=== PATIENT | female | born 1980 | race Native Hawaiian/Other Pacific Islander ===

== ENCOUNTER 2018-08-24 12:30 | Observation (INO) | payer BC ==
[~2018-08-24] VITALS: Ht 160 cm; Wt 79.6 kg
[2018-08-24] VITALS (10 sets, daily range): BP systolic 96–144; BP diastolic 65–93; TEMP 98.1–98.3; Ht 160 cm; Wt 79.6 kg
[2018-08-24] MEDS ORDERED: LORA0.5T17 PO (12:47)
[2018-08-24 13:20] LABS: PLATELET COUNT 276 K/uL (152-353)
[2018-08-25 04:00] VITALS: BP 92/57; TEMP 98
[2018-08-25 06:16] LABS: PLATELET COUNT 236 K/uL (152-353)
[2018-08-25 08:00] VITALS: BP 121/60; TEMP 97.96
== END 2018-08-25 12:10 | disposition home or self-care (01) ==
LOC: ED 12:30 → MED/SURG 15:00 → ED 15:30 → MED/SURG 08-25 12:10
PROVIDERS: Student in an Organized Health Care Education/Training Program; ADMIT Emergency Medicine
PROC: 0DTJ4ZZ Resection of Appendix, Percutaneous Endoscopic Approach (ICD-10-PCS; principal; 2018-08-24)
DX: K35.890 Other acute appendicitis without perforation or gangrene (principal)
CPT/HCPCS: 36415; 80053; 81000; 81025; 82150; 83690; 85027; 96361; 96365; 96375; 99220; 99284; G0378; J0132; J0330; J0360; J1100; J1170; J1644; J1885; J2001; J2250; J2405; J2543; J2704; J3010; J3490

== ENCOUNTER 2018-12-19 08:20 | Emergency (ER) | payer BC ==
[~2018-12-19] VITALS: Ht 160 cm; Wt 68.0 kg
[~2018-12-19 08:20] MED LIST: LORA0.5T17 PO
[2018-12-19 08:55] LABS: PLATELET COUNT 281 K/uL (152-353)
[2018-12-19 09:07] LABS: POTASSIUM 3.9 mmol/L (3.6-5.2)
[2018-12-19 11:01] VITALS: BP 133/84; TEMP 98
== END 2018-12-19 11:12 | disposition home or self-care (01) ==
LOC: ED 08:20
PROVIDERS: Family Medicine
DX: R10.11 Right upper quadrant pain (principal)
CPT/HCPCS: 36415; 80053; 81000; 82150; 83690; 85027; 96374; 99284; J1885

== ENCOUNTER 2018-12-22 07:50 | Outpatient (CLI) | payer BC ==
[~2018-12-22] VITALS: Ht 30.5 cm; Wt 0.5 kg
== END 2018-12-22 23:15 | disposition home or self-care (01) ==
LOC: NM 07:50
DX: R10.11 Right upper quadrant pain (principal)
CPT/HCPCS: A9537; J2270

== ENCOUNTER 2018-12-26 08:11 | Day surgery (SDC) | payer BC ==
[~2018-12-26] VITALS: Ht 30.5 cm; Wt 0.5 kg
== END 2018-12-26 14:47 | disposition home or self-care (01) ==
LOC: OR 08:11
PROC: 0FT44ZZ Resection of Gallbladder, Percutaneous Endoscopic Approach (ICD-10-PCS; principal; 2018-12-26)
DX: K81.1 Chronic cholecystitis (principal)
CPT/HCPCS: 81025; J0132; J0330; J0690; J1100; J1170; J1885; J2001; J2250; J2405; J2704; J2765; J3010; J3490

== ENCOUNTER 2019-08-07 13:55 | Outpatient (CLI) | payer BC | END 2019-08-07 20:15 | disposition home or self-care (01) | LOC: RAD 13:55 | DX: M79.671 Pain in right foot (principal) ==

== ENCOUNTER 2019-08-14 12:42 | Emergency (ER) | payer BC ==
[~2019-08-14] VITALS: Ht 160 cm; Wt 65.8 kg
[2019-08-14 12:50] VITALS: BP 128/103; TEMP 98.1
== END 2019-08-14 14:21 | disposition home or self-care (01) ==
LOC: ED 12:42
DX: S09.90XA Unspecified injury of head, initial encounter (principal); J01.90 Acute sinusitis, unspecified; W51.XXXA Accidental striking against or bumped into by another person, initial encounter; Y92.219 Unspecified school as the place of occurrence of the external cause
CPT/HCPCS: 99282; 99283

== ENCOUNTER 2021-01-08 14:31 | Outpatient (CLI) | payer BC | END 2021-01-08 22:04 | disposition home or self-care (01) | LOC: RAD 14:31 | PROVIDERS: ATTEND Nurse Practitioner Family | DX: Z20.828 Contact with and (suspected) exposure to other viral communicable diseases (principal) ==

== ENCOUNTER 2023-02-15 12:51 | Outpatient (CLI) | payer OTHER | END 2023-02-15 18:59 | disposition home or self-care (01) | LOC: MAMMO 12:51 | PROVIDERS: ATTEND Obstetrics & Gynecology | DX: Z12.31 Encounter for screening mammogram for malignant neoplasm of breast (principal) ==